=== PATIENT | male | born 1950 | race Caucasian/White ===

== ENCOUNTER → 2023-12-27 08:03 | Outpatient (REF) | payer OTHER, SELFPAY ==
[2023-12-27 09:31] LABS: HDL Cholesterol 32 mg/dl; LDL Cholesterol, Calculated 124 mg/dl; Total Cholesterol 198 mg/dl (50-199); Triglyceride 214 mg/dl (10-149); Very Low Density Lipoprotein 42 mg/dl (0-30)
== END ==
LOC: REG 08:03
PROVIDERS: ATTENDING PHYSICIAN Nurse Practitioner Family
DX: E78.00 Pure hypercholesterolemia, unspecified (principal)
CPT/HCPCS: 36415; 80061